=== PATIENT | female | born 1945 | race American Indian/Alaskan Native ===

== ENCOUNTER 2018-11-22 12:57 | Outpatient (CLI) | payer MEDICARE ==
[2018-11-22 13:16] LABS: Hematocrit 39.8 % (30.3-42.9); Hemoglobin 13.5 gm/dl (10.1-14.3); Mean Corpuscular HGB Conc 34 % (30-34); Mean Corpuscular Volume 88 fl (79-97); Platelet Count 224 K/mm3 (140-440); Red Cell Distribution Width 14.6 % (13.2-15.2)
[2018-11-22 13:31] LABS: Alanine Aminotransferase 14 units/L (7-56); Albumin 4.1 g/dL (3.9-5); BUN/Creatinine Ratio 11; Blood Urea Nitrogen 10 mg/dL (7-17); Calcium 9.8 mg/dL (8.4-10.2); Hemolysis Index 5
[2018-11-22 13:43] LABS: Erythrocyte Sedimentation Rate 1 mm/Hr (0-20)
== END 2018-11-22 12:58 | disposition home or self-care (01) ==
LOC: LAB 12:57
PROVIDERS: ATTEND Specialist
DX: H81.23 Vestibular neuronitis, bilateral (principal)
CPT/HCPCS: 36415; 80053; 85027; 85652

== ENCOUNTER 2019-10-01 15:14 | Outpatient (CLI) | payer MEDICARE | END 2019-10-01 15:15 | disposition home or self-care (01) | LOC: LAB 15:14 | PROVIDERS: ATTEND Specialist | DX: M31.6 Other giant cell arteritis (principal) | CPT/HCPCS: 36415; 85652 ==